=== PATIENT | male | born 1955 ===

== ENCOUNTER 2023-10-22 09:23 | Day surgery (SDC) | payer OTHER ==
[~2023-10-22] VITALS: Ht 175.3 cm; Wt 100.4 kg
[2023-10-22] MEDS ORDERED: CeFAZolin Sodium 2,000 MG VIAL ONE (09:52)
[2023-10-22] MEDS ORDERED: NS 50 ML IV ONE (09:52)
[2023-10-22] MEDS ORDERED: Lactated Ringer's 1,000 ML IV ONE ×3 (09:52→13:21)
[2023-10-22] MEDS ORDERED: TRAZ100 (10:05)
[2023-10-22] MEDS ORDERED: CHLO25B (10:05)
[2023-10-22] MEDS ORDERED: POTA8 (10:10)
[2023-10-22] MEDS ORDERED: AMLO5 (10:11)
[2023-10-22] MEDS ORDERED: TIZA4 (10:12)
[2023-10-22] MEDS ORDERED: FERSU300 (10:13)
[2023-10-22] MEDS ORDERED: Vitamin C100 MG (10:13)
[2023-10-22] MEDS ORDERED: LOSA50 (10:14)
[2023-10-22] MEDS ORDERED: Vitamin C100 M1 (10:14)
[2023-10-22] MEDS ORDERED: Midazolam HCl 1MG / ML 2ML Vial ONE (11:01)
[2023-10-22] MEDS ORDERED: EPINEPhrine HCl 1 MG/ML 1ML Amp ONE (11:25)
[2023-10-22] MEDS ORDERED: Dexamethasone Sod Phos 10 MG/ML 1ML VIAL ONE (11:25)
[2023-10-22] MEDS ORDERED: Bupivacaine 0.5% HCl 5 MG/ML 30MLVIAL ONE (11:25)
[2023-10-22] MEDS ORDERED: propofoL 20 ML IV ONE (11:25)
[2023-10-22] MEDS ORDERED: SuccINYLCHOLINE Chloride 100 MG/5 ML 5MLSYR ONE (11:49)
[2023-10-22] MEDS ORDERED: EPINEPhrine HCl 1 MG/ML 1ML Amp XX ONE (11:53)
[2023-10-22] MEDS ORDERED: ePHEDrine Sulfate 50 MG/ML 1ML Injection ONE (11:56)
--- NOTE | 2023-10-22 12:11 | NUR ---
10/22/23 1211 [place] 0.1ML OF EPI (1MG/ML) ADDED TO 10ML OF NORMAL SALINE TO MAKE EPI 1:100,000 FOR INJECTION AT [facility]. 1MG OF EPI (1MG/ML) ADDED TO THE FRIST BAG OF LR FOR IRRIGATION AT THE [facility].
--- NOTE | 2023-10-22 14:10 | NUR ---
10/22/23 1410 TARYN BEATTY PT C/O CALF MUSCLE SORENESS LIKE HE HAD A CRAMP; REPORTED TO DR MARTELL AT BEDSIDE. PT STATES HE GETS LEG CRAMPS AND TIGHT SORE MUSCLES REGULARLY.
== END 2023-10-22 14:57 | disposition home or self-care (01) ==
LOC: ORSCSDS 09:23
PROVIDERS: Orthopaedic Surgery
PROC: 0RNJ4ZZ Release Right Shoulder Joint, Percutaneous Endoscopic Approach (ICD-10-PCS; principal; 2023-10-22 11:30)
PROC: 0LM14ZZ Reattachment of Right Shoulder Tendon, Percutaneous Endoscopic Approach (ICD-10-PCS; principal; 2023-10-22 11:30)
DX: M75.121 Complete rotator cuff tear or rupture of right shoulder, not specified as traumatic (principal); S46.111A Strain of muscle, fascia and tendon of long head of biceps, right arm, initial encounter; M75.41 Impingement syndrome of right shoulder; I10 Essential (primary) hypertension; Z87.891 Personal history of nicotine dependence; F32.A Depression, unspecified; Z79.899 Other long term (current) drug therapy
CPT/HCPCS: C1713; J0171; J0330; J0690; J1100; J2250; J2704; J7120